=== PATIENT | female | born 1950 | race Caucasian/White ===

== ENCOUNTER → 2019-05-05 | Outpatient (CLI) | payer MEDICARE ==
[~2019-05-05] MED LIST: AMOX500 PO; CRUTCH3 USE; HYDACE5 PO; NAPR500 PO; PENVK500 PO; TRAM50 PO
== END | disposition home or self-care (01) ==
LOC: LAB SHORT 12:39 → LAB EV 12:39
DX: J02.9 Acute pharyngitis, unspecified (principal)
CPT/HCPCS: 87081